=== PATIENT | female | born 1930 | race Caucasian/White ===

== ENCOUNTER → 2016-11-29 | Outpatient (CLI) | payer OTHER ==
[~2016-11-29] MED LIST: CALCIUM 500 +1 EAC5 PO; CELEBREX 200 M200 M1 PO; COLACE100 MG PO; GABAPENTIN100 MG PO; GLUMETZA500 PO; INDAPAMIDE2.5 MG PO; MAALOX MAXIMUM355 ML PO; MELATONIN3 MG PO; MIRALAX17 GM PO; NEXIUM 40 MG CA40 M1 PO; NORCO 5-325 TA1 EACH PO; PRILOSEC20 MG PO; QUINAPRIL 20 MG20 MG PO; SIMVASTATIN40 MG PO; SYNTHROID50 MCG PO; TYLENOL325 MG PO; XANAX 0.25 MG0.25 MG PO
== END ==
LOC: HYPER 14:13
DX: L30.9 Dermatitis, unspecified (principal); E11.69 Type 2 diabetes mellitus with other specified complication; K21.9 Gastro-esophageal reflux disease without esophagitis; R21 Rash and other nonspecific skin eruption; L30.4 Erythema intertrigo; I10 Essential (primary) hypertension; M81.0 Age-related osteoporosis without current pathological fracture; Z79.84 Long term (current) use of oral hypoglycemic drugs; Z85.828 Personal history of other malignant neoplasm of skin; Z72.89 Other problems related to lifestyle

== ENCOUNTER 2018-05-28 01:03 | Emergency (ER) | payer OTHER ==
[~2018-05-28] VITALS: Ht 154.9 cm; Wt 75.3 kg
--- NOTE | ~2018-05-28 | EKG ---
[place] [address] [facility] [place] [address] ELECTROCARDIOGRAM REPORT Name: ROBERT FRANKEL [id number] Admission: 05/28/18 Attend Phys: Discharge: 05/28/18 Date of : 34 Report #: [id number] THIS REPORT FOR: //name// 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 05/28/18 0845 014 1 Carlos Manuel Bolton MD, [facility] /EPI
[2018-05-28 01:38] LABS: ABSOLUTE NEUTROPHILS 4.5 thou/uL (1.4-8.2); BASOPHILS 0.8 % (0.0-2.0); HEMOGLOBIN 11.7 gm/dL (12.0-15.0); LYMPHOCYTES 30.1 % (24.0-44.0); MCH 29.8 pg (26.0-34.0); MCHC 33.3 g/dL (28.0-37.0); MCV 89.6 fL (80.0-100.0); MONOCYTES 6.8 % (1.0-8.0); PLATELET COUNT 197 thou/uL (150-400); POLYS 61.3 % (36.0-66.0); RBC 3.91 mil/uL (4.20-5.00); RDW 12.8 % (10.5-14.5); WBC 7.3 thou/uL (4.0-11.0)
[2018-05-28 01:45] LABS: CALCIUM 9.3 mg/dL (8.5-10.1); CREATININE 1.1 mg/dL (0.6-1.0); POTASSIUM 4.6 mmol/L (3.5-5.1)
[2018-05-28 02:41] LABS: URINE BILIRUBIN NEGATIVE (Negative); URINE BLOOD NEGATIVE (Negative); URINE CLARITY CLEAR; URINE COLOR YELLOW; URINE GLUCOSE-RANDOM* NEGATIVE (Negative); URINE KETONES NEGATIVE (Negative); URINE LEUKOCYTES 2+ (Negative); URINE NITRITE NEGATIVE (Negative); URINE PROTEIN (DIPSTICK) NEGATIVE (Negative); URINE SPECIFIC GRAVITY 1.015 (1.005-1.035); URINE UROBILINOGEN 0.2 E.U./dl (0.2-1.0)
[2018-05-28 03:00] LABS: BACTERIA 1-9 Few /HPF (None Seen); CASTS None Seen /LPF (None Seen); CRYSTALS None Seen /LPF (None Seen); MUCUS 0-3 Light strn/LPF (None Seen); SQUAMOUS None Seen /LPF (0-3); URINE RBC None Seen /HPF (0-2); URINE WBC 6-15 Few /HPF (0-5)
[2018-05-28] MEDS ORDERED: CEFUROXIME250 MG PO (03:50)
== END 2018-05-28 04:03 | disposition home or self-care (01) ==
LOC: ER 01:03
PROVIDERS: Emergency Medicine
DX: N39.0 Urinary tract infection, site not specified (principal); R41.82 Altered mental status, unspecified; M25.512 Pain in left shoulder; M19.90 Unspecified osteoarthritis, unspecified site; M79.7 Fibromyalgia; K21.9 Gastro-esophageal reflux disease without esophagitis; I10 Essential (primary) hypertension; M81.0 Age-related osteoporosis without current pathological fracture; E11.9 Type 2 diabetes mellitus without complications; F41.9 Anxiety disorder, unspecified; Z90.49 Acquired absence of other specified parts of digestive tract; Z96.652 Presence of left artificial knee joint; Z85.828 Personal history of other malignant neoplasm of skin; Z88.8 Allergy status to other drugs, medicaments and biological substances; Z88.2 Allergy status to sulfonamides

== ENCOUNTER 2020-11-24 12:33 | Inpatient (IN) | payer OTHER ==
[~2020-11-24] VITALS: Ht 162.6 cm; Wt 57.1 kg
[~2020-11-24 12:33] MED LIST changes: -BRILINTA90 MG PO; -CHLORPROMAZINE10 M2 PO; -KEFLEX500 M1 PO; -NORVASC 2.5 MG2.5 M1 PO; -PROTONIX40 M2 PO; -SENNA PLUS TAB1 EACH PO; -SERTRALINE HCL100 MG PO
[2020-11-24 12:47] VITALS: BP 131/65
[2020-11-24] MEDS ORDERED: CHLORPROMAZINE10 M2 PO (14:17)
[2020-11-24] MEDS ORDERED: KEFLEX500 M1 PO (14:18)
[2020-11-24] MEDS ORDERED: NORVASC 2.5 MG2.5 M1 PO (14:18)
[2020-11-24] MEDS ORDERED: BRILINTA90 MG PO (14:19)
[2020-11-24] MEDS ORDERED: SENNA PLUS TAB1 EACH PO (14:19)
[2020-11-24] MEDS ORDERED: PROTONIX40 M2 PO (14:20)
[2020-11-24] MEDS ORDERED: SERTRALINE HCL100 MG PO (14:20)
[2020-11-24 15:38] LABS: ABSOLUTE NEUTROPHILS 5.8 thou/uL (1.4-8.2); BASOPHILS 0.5 % (0.0-2.0); EOSINOPHILS 1.5 % (0.0-3.0); HEMOGLOBIN 11.5 gm/dL (12.0-15.0); LYMPHOCYTES 20.2 % (24.0-44.0); MCH 29.7 pg (26.0-34.0); MCV 92.6 fL (80.0-100.0); MONOCYTES 5.6 % (1.0-8.0); PLATELET COUNT 236 thou/uL (150-400); POLYS 72.2 % (36.0-66.0); RBC 3.89 mil/uL (4.20-5.00); RDW 13.8 % (10.5-14.5)
[2020-11-24 15:43] LABS: CALCIUM 9.5 mg/dL (8.5-10.1); CREATININE 1.1 mg/dL (0.6-1.0); POTASSIUM 3.9 mmol/L (3.5-5.1)
[2020-11-24 15:49] LABS: ALBUMIN 3.1 g/dL (3.4-5.0); MAGNESIUM 1.2 mg/dL (1.8-2.4); TOTAL BILIRUBIN 0.2 mg/dL (0.2-1.0); TOTAL PROTEIN 7.3 g/dL (6.4-8.2)
--- NOTE | 2020-11-24 17:21 | NUR ---
WHEN CHECKING ON PATIENT AFTER MEDICATION ADMINISTRATION, ARM ABOVE IV IS RED AND SLIGHTLY INFLAMMED. PT STATES ARM DOES NOT HURT. IV REMOVED, IV TEAM NOTIFIED
--- NOTE | 2020-11-24 17:24 | NUR ---
DR GRANDE AND PHARMACY CONSULTED D/T POSSIBLE INFILTRATION
[2020-11-24 18:25] VITALS: BP 131/65
[2020-11-24 18:32] VITALS: BP 131/65
--- NOTE | 2020-11-24 19:22 | NUR ---
CAREY CALLED FOR PICC LINE ORDER.
[2020-11-24 19:23] VITALS: BP 125/55
[2020-11-24 20:00] VITALS: BP 155/64
--- NOTE | 2020-11-24 21:07 | NUR ---
PT CAME UP FROM ER AT 1950 HRS. NO IV ACCESS. WAITING FOR PICC LINE PLACEMENT.REQUEST PLACED IN ER.
--- NOTE | 2020-11-24 23:47 | NUR ---
ADMISSION ASSESSMENT COMPLETED. PT [place] AND WITH SOME CONFUSION, MAKING IT SOMEWHAT DIFFICULT TO ANSWER QUESTIONS.PT HAS LEFT SIDED MILD CONTRACTURES WITH WEAKNESS.PT UNABLE TO SIGN CONSENTS.REPORTS PAIN AND TENDERNESS TO R GREAT TOE. SCDS IRRITATE HER MORE.AFEBRILE. STABLE ON ROOM AIR. GIVEN TRAMADOL FOR PAIN. NOTED TO SWALLOW MEDS OKAY. PT IS INCONTINENT OF BLADDER.A PIV PLACED IN LEFT WRIST-BLOOD SUGAR OF 120.PT FORGETS TO USE CALL LIGHT EVEN AFTER THE EDUCATION.FALL PREC IN PLACE.COVID TEST SENT TO LAB.WILL CONTINUE WITH POC TILL EOS.
[2020-11-25 07:33] VITALS: BP 135/69
--- NOTE | 2020-11-25 09:39 | NUR ---
ASSUMED CARE AT 0700. PT IS A&O X 2-3. PT IS VERY CONFUSED AND FORGETFUL. CALLED IV TEAM REGARDING PICC LINE. NEEDS CONSENT FORM TO SIGN FOR FALL RISK, AND PICC LINE CONSENT. RA. WHEELCHAIR BOUND DUE TO STROKE. WOUND ON RIGHT TOE: BLACKISH LIKE INGROWN NAIL. IV IS ON L. WRIST TO GIVE ANTIBIOTICS LAST NIGHT BUT NEEDS PICC LINE. ACHS. INCONTINENT. FALL PRECAUTION. CALL LIGHT WITHIN REACH.
--- NOTE | 2020-11-25 14:53 | NUR ---
Chart reviewed and case discussed with the care team. Spouse here at bedside but pt being preped to go to MRI. The pt was admitted via the [facility] wound clinc where she is being followed for a non healing Rt toe ulcer. Rule out osteo. Wound care and ID consulting. Pt is wheelchair bound due to a prior CVA and relies on spouse for history and care. The pt's spouse and dtr noted to be her dpoa for hc and family to bring in a copy. The pt's pcp is Dr. Parks. Will reattempt to visit with the pt's spouse to see if they have any caregiving support or HH prior to admission. Will follow.
--- NOTE | 2020-11-25 15:18 | NUR ---
VAT CONSULTED FPR PICC PLACEMENT. DISCUSSED BENEFITS AND RISK WITH PT AND , VERBALIZED UNDERSTANDING. PT'S LABS,MEDS,HX,ORDER AND CONSENT VERIFIED. VIRGILIO ROB WAS WIDELY PATENT WITH USG. 4FR SL POWER PICC TRIMMED TO 41CM INSERTED TO 1CM EXTERNAL. PT TOLERATED WELL. STAT CXR ORDERED
--- NOTE | 2020-11-25 15:43 | NUR ---
CXR SHOWS PICC CURLED. POWER FLUSHED AND REPOSITIONED. 2ND STAT CXR ORDERED
[2020-11-25 16:03] VITALS: BP 144/50
--- NOTE | 2020-11-25 16:57 | NUR ---
2ND CXR CONFIRMED PICC IN CAJ. PICC RELEASED FOR IMMEDIATE USE PER PROTOCOL TO MEY WHITLEY
--- NOTE | 2020-11-25 20:13 | NUR ---
ASSUMED PT CARE AT AROUND 1915 HRS. PT OBSERVED YELLING AND SCREAMING. INSISITING SHE WANTS TO GET OUT OF BED. PT IS VERY CONFUSED.PT WAS ABLE TO TALK AND CALMED DOWN. SHE TOOK SUKHWINDER WITH SOME JELLO.
[2020-11-26] VITALS (11 sets, daily range): BP systolic 115–141; BP diastolic 45–84
[2020-11-26 04:59] LABS: HEMATOCRIT 30.3 % (37.0-47.0); HEMOGLOBIN 9.8 gm/dL (12.0-15.0); MCH 29.9 pg (26.0-34.0); MCHC 32.5 g/dL (28.0-37.0); MCV 91.9 fL (80.0-100.0); RBC 3.3 mil/uL (4.20-5.00); RDW 13.9 % (10.5-14.5); WBC 6.9 thou/uL (4.0-11.0)
[2020-11-26 05:17] LABS: CALCIUM 9.4 mg/dL (8.5-10.1); MAGNESIUM 1.1 mg/dL (1.8-2.4)
[2020-11-26 05:22] LABS: POTASSIUM 4.6 mmol/L (3.5-5.1)
[2020-11-26 06:31] LABS: APTT 25.9 Seconds (24.5-32.8); PROTIME 10.3 Seconds (9.3-11.4)
--- NOTE | 2020-11-26 13:09 | NUR ---
ON-GOING ASSESSMENT: CM REVIEWED CHART AND SPOKE WITH ATTENDING AND BEDSIDE RN. PT REMAINS ON IV ANBX. AWAITING FURTHER RECS FROM PODIATRY. CM WILL CONTINUE TO FOLLOW TO ASSIST NEEDED.
--- NOTE | 2020-11-26 14:40 | NUR ---
Assume care of pt at 0700. Pt alert but confused. Pt will have aortogram today. Family notified. RA. Pt impulsive at times when family is not at bedside. IV antibiotics infusing. Fall precautions in place. Will continue to monitor.
--- NOTE | 2020-11-26 19:38 | NUR ---
PATIENT TRANSFER FROM , IN FROM LOGGING EQUIPMENT OPERATOR. PATIENT CONFUSED, VSS, NO APPARENT PAIN. DR JJ APPROVED LEFT LEG SOFT RESTRAINT TO KEEP PATIENT FROM CROSSING LEGS. PATIENT GET UP AT 2100. ATTEMPTED TO CALL AT 1935 ABOUT RESTRAINT AND NO ANSWER. PATIENT HAS WOUND ON RIGHT GREAT TOE AND REDNESS ON BACKSIDE, UNABLE TO GET PHOTO. PATIENT HAS RIGHT UPPER ARM PICC. PATIENT CAME TO FLOOR APPROX 1830. PATIENT ON ROOM AIR, SATS AT 95%. PATIENT ON TELE MONITOR, SINUS RHYTHM. RESTRAINT PAPERWORK COMPLETED. NO SIGNS OF DISTRESS OBSERVED. WILL CONTINUE TO MONITOR.
--- NOTE | 2020-11-27 04:08 | NUR ---
PT IS ALERT TO SLEF WITH CONFUSION. LUNGS ARE CLEAR ON ROOM AIR. EXTERNAL CATH ON PT. UP AND VOIDS TOO IN THE BATHROOM. LEFT GROIN SITE CLEAN DRY AND INTACT. TAKES TYELENOL FOR PAIN CONTROL AND WORKS CAUSE AFTER MEDS PT IS SLEEPING CALL LIGHT WITHIN REACH IF NEEDED FOR ASSISTANCE.
[2020-11-27 04:11] VITALS: BP 99/66
[2020-11-27 06:12] LABS: CALCIUM 9.4 mg/dL (8.5-10.1); CREATININE 0.8 mg/dL (0.6-1.0); MAGNESIUM 1.5 mg/dL (1.8-2.4); POTASSIUM 4.5 mmol/L (3.5-5.1)
[2020-11-27 07:10] VITALS: BP 115/52
--- NOTE | 2020-11-27 08:00 | HC ---
[facility] [place] [place] [address] CONSULTATION Name: ROBERT FRANKEL Room #: 203-P ADM IN M.R.#: [id number] Admission: 11/24/20 Attend Phys: Maurice Wick MD Discharge: Date of : 32 Report #: [id number] THIS REPORT FOR: cc: Silvano Parks MD, Rene P. MD Althoff, Jeffrey R. MD ~ DATE OF SERVICE: 11/25/2020 CHIEF COMPLAINT: Great toe ulceration. HISTORY OF PRESENT ILLNESS: This is an 89-year-old female patient who was seen in the Wound Care Clinic by Dr. Wagner yesterday. She was noted to have ulceration of her right great toe with some necrosis and infection and she was admitted for further evaluation and treatment. The patient states she is doing relatively well, but does complain of pain in the great toe. PAST MEDICAL HISTORY: Positive for history of cognitive impairment, arthritis, fibromyalgia, GERD, bilateral cataracts, hypertension, degenerative disk disease, previous left knee replacement, type 2 diabetes mellitus, previous cholecystectomy, anxiety and history of hyponatremia. SOCIAL HISTORY: The patient admits to occasional alcohol use. She has never been a smoker. No recreational drug use. MEDICATIONS: Include Xanax, Prilosec, Accupril, Tylenol, Glumetza, Zocor, Synthroid, Os-Urban, Colace, melatonin, MiraLax, chlorpromazine, Norvasc, Keflex, Brilinta, Protonix, sertraline. ALLERGIES: CIMETIDINE, HYDROCODONE, SULFA AND NONSTEROIDAL ANTI-INFLAMMATORY AGENTS. REVIEW OF SYSTEMS: CONSTITUTIONAL: The patient denies fever, chills or weight loss. NEUROLOGIC: The patient denies focal weakness, numbness or tingling. EYES: The patient denies visual changes, redness, or drainage. ENT: The patient denies earache, nasal drainage or sore throat. CARDIOVASCULAR: The patient denies chest pain, palpitations or diaphoresis. PULMONARY: The patient denies cough or shortness of breath. GASTROINTESTINAL: The patient denies nausea, vomiting or abdominal pain. ORTHOPEDIC: The patient complains of pain in her right great toe. Other systems in a 14-point review of systems are negative. PHYSICAL EXAMINATION: VITAL SIGNS: At this time include temperature 36.7, pulse 61, respiratory rate 16, blood pressure 144/50. [address] [address] CONSULTATION Name: ROBERT FRANKEL Room #: 203-P [facility] IN ..#: [id number] Admission: 11/24/20 Attend Phys: Maurice Wick MD Discharge: Date of : 32 Report #: [id number] GENERAL: This is a chronically ill-appearing female patient who appears to be in no distress. HEENT: Head normocephalic. Nose and throat clear. NECK: Supple. ABDOMEN: Soft. Bowel sounds present. EXTREMITIES: Lower extremities demonstrate distal pulses are difficult to palpate, although the toes are pink, warm and dry. She has ulceration to the nail bed of the right great toe with some eschar involving the distal nail bed and tip of the toe. The nail appears to be somewhat ingrown. There is some mild erythema and moderate tenderness. NEUROLOGIC: The patient is alert, does move all 4 extremities. LABORATORY DATA: Include white blood cell count 8000 with hemoglobin of 11.5. Sodium 140, potassium 4.6, chloride 108, CO2 of 26, BUN 24, creatinine 1.0, glucose 118. C-reactive protein is less than 2. An MRI was performed, which demonstrated possible findings of osteomyelitis of the distal tuft. CLINICAL IMPRESSION: 1. Ulceration of the distal portion of the right great toe with a partially ingrown toenail. 2. Hypertension and type 2 diabetes mellitus. 3. History of ethanol abuse. 4. Generalized anxiety disorder. RECOMMENDATIONS: At this point in time, I would recommend topical Betadine to the eschar. We will review arterial Doppler studies with Dr. Alcala. I have asked Podiatry to see him, Dr. Walker, for possible surgical intervention or debridement of the nail bed or toenail itself. I appreciate being asked to see the patient in consultation. <ELECTRONICALLY SIGNED> By: Deion Del Cid MD 11/27/20 0800 1704 1900 Deion Del Cid MD /nt
[2020-11-27 08:48] LABS: HEMOGLOBIN 10.4 gm/dL (12.0-15.0); MCH 30.3 pg (26.0-34.0); MCHC 32.5 g/dL (28.0-37.0); MCV 93.4 fL (80.0-100.0); RBC 3.43 mil/uL (4.20-5.00); RDW 14.2 % (10.5-14.5); WBC 8.9 thou/uL (4.0-11.0)
[2020-11-27] MEDS ORDERED: CLOPIDOGREL75 MG PO (08:52)
[2020-11-27] MEDS ORDERED: ASPIR 8181 MG PO (08:52)
[2020-11-27 11:15] VITALS: BP 132/51
--- NOTE | 2020-11-27 12:16 | NUR ---
Pt now on CCU. ID consulted due to wound infection. Visited with pt and spouse at bedside. They note that their disabled son also lives with them. Pt's spouse is primary cg for the pt but has had hh recently with [facility] and private duty per [facility] [employer] as well as a pall run lead visits monthly with [facility]. Some of the private duty hours are covered by [employer] benefits as well. DC principal planner to fax updated to [facility] to see if they will accept the pt back on service for RN and therapy at md. They prefer to stay with [facility] if possible. The pt has all needed dme in place at home including a hospital bed w/trapeze, w/c, rwalker, shower chair. The home is all on one level. Pt is an assist of one for transfers to the w/c. Pt's spouse is very attentive. He notes their dtr Saima is very involved with their care at home and can be contacted for dc planning efforts as well. No dc anticipated this weekend. Will reassess Monday and anticipate dc to home with hh.
--- NOTE | 2020-11-27 13:28 | NUR ---
FAXED REFERRAL TO [facility] SPOKE WITH INTAKE AND THEY CANNOT ACCEPT THEY ARE ON [facility] PT'S HOME LOCATION.
[2020-11-27 15:42] VITALS: BP 130/46
--- NOTE | 2020-11-27 18:28 | NUR ---
PATIENT IS NOT PROGRESSING TOWARDS OUTCOME GOALS EVIDENT BY SHE IS AFEBRILE. AT BEDSIDE AND ASSISTING WITH MEALS. LEFT GROIN SITE IS SOFT AND FEET ARE WARM TO TOUCH. WOUND CARE GIVEN. WILL CONTINUE TO MONITOR
[2020-11-27 19:09] VITALS: BP 149/65
[2020-11-28 04:00] VITALS: BP 135/64
--- NOTE | 2020-11-28 04:47 | NUR ---
SLEPT MOST OF SHIFT. WANTS TO HAVE SOMEONE AT BEDSIDE ALL OF THE TIME. REASSURED SHE WOULD BE WATCHED CLOSELY. WORKING ON GOALS AND PLAN OF CARE FOR NOC. PROGRESSING SLOWLY TOWARDS DISCHARGE GOALS. NO COMPLAINTS OF PAIN UNLESS TOUCHING RIGHT FOOT. TURNS SELF IN BED. FEMALE CATH REMAINS IN PLACE. CONTINUE TO ASSES CLOSELY.
[2020-11-28 05:43] LABS: HEMATOCRIT 28.4 % (37.0-47.0); HEMOGLOBIN 9.4 gm/dL (12.0-15.0); MCH 30.1 pg (26.0-34.0); MCHC 32.9 g/dL (28.0-37.0); MCV 91.4 fL (80.0-100.0); RBC 3.11 mil/uL (4.20-5.00); RDW 13.8 % (10.5-14.5); WBC 8.5 thou/uL (4.0-11.0)
[2020-11-28 05:59] LABS: CALCIUM 9.4 mg/dL (8.5-10.1); CREATININE 0.8 mg/dL (0.6-1.0); POTASSIUM 3.8 mmol/L (3.5-5.1)
[2020-11-28 07:40] VITALS: BP 127/70
[2020-11-28 11:28] VITALS: BP 134/74
--- NOTE | 2020-11-28 14:23 | NUR ---
PT ONLY ORIENTED TO SELF, ASK, "WHERE AM I?" DID NOT WANT HER LOWER SIDE RAILS DOWN BECAUSE SHE IS "SCARED I'LL FALL OUT OF BED." AT SIDE FOR LAST FEW HOURS. PT SLEEPING COMFORTABLY. UPDATED HIM ON POC,
--- NOTE | 2020-11-28 15:02 | HC ---
[facility] [place] [place] [address] CONSULTATION Name: ROBERT FRANKEL Room #: 203-P ADM IN M.R.#: [id number] Admission: 11/24/20 Attend Phys: Maurice Wick MD Discharge: Date of : 32 Report #: [id number] THIS REPORT FOR: cc: Silvano Parks MD, Rene P. MD Geha, Daniel J. MD ~ DATE OF SERVICE: 11/27/2020 INFECTIOUS DISEASE CONSULTATION REASON FOR CONSULTATION: I was asked to evaluate concerning right first toe wound and osteomyelitis. HISTORY OF PRESENT ILLNESS: The patient was an 89-year-old admitted due to nonhealing and painful right first toe wound. The patient has underlying history of diabetes, stroke and peripheral vascular disease. She was seen in the Wound Care Clinic and admitted for further intervention. She denied any fever, chills or sweats. She was found to have significant vascular obstruction and underwent angiography along with stenting of the right SFA, popliteal and tibioperoneal trunk. MRI scan showed reactive bone to the distal aspect of the right first distal phalanx. There was no cortical destruction. She reports no specific trauma. She does have an ingrown nail with known onychomycosis. She was treated with vancomycin to date. REVIEW OF SYSTEMS: A 14-point review of system was negative other than what has been described above. ALLERGIES: CIMETIDINE, HYDROCODONE, NONSTEROIDAL ANTI-INFLAMMATORIES, BACTRIM. MEDICATIONS: As noted on her MAR including vancomycin. She was previously on cephalexin. PAST MEDICAL HISTORY: Stroke with left hemiparesis, peripheral vascular disease, diabetes, hypertension, hypothyroidism, hyperlipidemia, osteoarthritis, hard of hearing, mild dementia, left total knee arthroplasty, bilateral cataract extraction, cholecystectomy, anxiety, fibromyalgia. FAMILY HISTORY: Denies tuberculosis. SOCIAL HISTORY: Nonsmoker, occasional alcohol use. PHYSICAL EXAMINATION: VITAL SIGNS: Afebrile and hemodynamically stable. GENERAL: She is alert and cooperative. She was in no distress. She was hard of hearing. [facility] [address] [place] [address] CONSULTATION Name: ROBERT FRANKEL Dar Room #: 203-[facility] IN M.R.#: [id number] Admission: 11/24/20 Attend Phys: Maurice Wick MD Discharge: Date of : 32 Report #: [id number] SKIN: With ulceration and eschar involving the medial distal aspect of her right first toe. There was an ingrown nail. She had mild surrounding erythema. There is no erythema extending to the proximal toe went to the foot. Trace edema. No palpable adenopathy. EYES: Without scleral icterus. MOUTH: Without mucositis. NECK: Supple. LUNGS: Clear. HEART: Regular, without murmur, gallop or rub. ABDOMEN: Soft and nontender with no hepatosplenomegaly or mass. EXTREMITIES: With 1+ palpable pulses, dorsalis pedis and posterior tibia on the right foot. Sensation to touch in the distal toes was diminished. The patient had weakness on the left side compared to the right. PSYCHIATRIC: Mood without anxiety or depression. LABORATORY STUDIES: Reviewed. Microbiology reviewed. Chest x-ray, MRI scan, angiogram reviewed. IMPRESSION: Right first toe, ischemic ulcer with secondary infection. Reactive bone marrow changes on MRI scan involving the distal phalanx of the first toe with no cortical destruction evident. Early osteomyelitis would also be possible. Peripheral vascular disease, status post multiple stent placements, diabetes, peripheral neuropathy, hypertension, anxiety. RECOMMENDATIONS: We will plan on continuing IV antibiotic therapy for the next several weeks and assess her response. We will need to follow imaging studies. Continue with local wound care. The patient may ultimately require further surgical intervention. Podiatry has evaluated and we will follow. <ELECTRONICALLY SIGNED> By: Sergio Dang MD 11/28/20 1502 18 35 Sergio Dang MD /nt
[2020-11-28 15:09] VITALS: BP 143/64
[2020-11-28 19:44] VITALS: BP 135/58
[2020-11-29 03:47] VITALS: BP 136/671; BP 136/71
--- NOTE | 2020-11-29 05:17 | NUR ---
SLEPT MOST OF SHIFT. COOPERATIVE WITH ACTIVITY. TURNS SELF AT TIMES AND ASSIST NEEDED. REMAINS ORIENTED TO SELF. DOES NOT REMEMBER WHY SHE IS HERE AND WHERE. DENIES COMPLAINTS OF PAIN EXCEPT WHEN RIGHT FOOT IS TOUCHED. CONTINUE TO ASSES CLOSELY. WORKING ON GOALS AND PLAN OF CARE FOR NOC. PROGRESSING SLOWLY TOWARDS REHAB OR HOME WITH HOME HEALTH.
[2020-11-29 07:28] VITALS: BP 142/64
[2020-11-29 11:25] VITALS: BP 136/54
[2020-11-29 15:33] VITALS: BP 132/62
--- NOTE | 2020-11-29 17:57 | NUR ---
EARLIER PATIENT WAS CONFUSED. SHE CALMED DOWN AFTER VISITED. NO C/O OF PAIN AT THIS TIME. WILL CONT TO MONITOR AND ASSIST NEEDED.
[2020-11-29 20:11] VITALS: BP 137/48
--- NOTE | 2020-11-30 02:07 | NUR ---
PT IS ALERT TO SLEF AND CONFUSION. LUNGS CLEAR ON ROOM AIR. ABDOMEN IS SOFT AND ROUND. DENIES ANY PAIN ISSUES AT THIS TIME. HAS A RIGHT UPPER ARM SINGLE LUMEN CATH FOR ANTIBIOTICS. MED SURG STATUS. CALL LIGHT WITHIN REACH IF NEEDED FOR ASSISTANCE. NO ISSUES OR CONCERNS NOTED AT THIS TIME. BETADINE TO RIGHT GREAT TOE
[2020-11-30 04:25] VITALS: BP 148/80
[2020-11-30 04:48] LABS: HEMATOCRIT 30.8 % (37.0-47.0); HEMOGLOBIN 9.7 gm/dL (12.0-15.0); MCH 29.1 pg (26.0-34.0); MCHC 31.6 g/dL (28.0-37.0); MCV 91.9 fL (80.0-100.0); RBC 3.35 mil/uL (4.20-5.00); RDW 13.9 % (10.5-14.5); WBC 9.4 thou/uL (4.0-11.0)
--- NOTE | 2020-11-30 05:04 | NUR ---
TRANSFER TO ROOM 462 WITH ALL BELONGING AND REPORT CALLED. PER NURSING.
[2020-11-30 05:12] VITALS: BP 129/48
[2020-11-30 05:27] LABS: CALCIUM 9.7 mg/dL (8.5-10.1); CREATININE 0.9 mg/dL (0.6-1.0); POTASSIUM 3.8 mmol/L (3.5-5.1)
--- NOTE | 2020-11-30 05:42 | NUR ---
PT TRANSFERED TO THE UNIT FROM AT 0450 ON MED/SURG.PT CAME WITH C/O WOUND ON RT GREAT TOE OPENED TO AIR WITH BETADINE.PT APPEARED TO BE IN NO ACUTE PAIN.PT IS ACCUCHECK ACHS.PT IS INCONTINENT TO B/B.PT IS ALERT TO SELF AND CONFUSE.IV ON VIRGILIO PICC LINE.WILL CONTINUE TO MONITOR POC
[2020-11-30 13:47] VITALS: BP 143/67
--- NOTE | 2020-11-30 15:15 | NUR ---
ASSUMED CARE OF PATIENT AFTER REPORT. ASSESSMENT CHARTED. MEDICATIONS ADMINISTERED PER EMAR. VSS. PATIENT IS A&OX4 AND MAKES NEEDS KNOWN; REPORTED TO HAVE FORGETFULNESS BUT NONE NOTED THIS SHIFT. PATIENT RECIEVED ABX X2 AND WILL BE SENT BACK HOME W HOME HEALTH THIS DAY. PATIENT HAS A SINGLE LUMEN PICC WHERE SHE WILL HAVE HER ABX ADMINISTERED. SPOUSE AT BEDSIDE. DISCHARGE PAPERWORK COMPLETED; PATIENT SPOUSE EDUCATED ON CARE PLAN AND POST DISCHARGE INSTRUCTIONS. PATIENT DENIED PAIN THIS SHIFT, INCONTINENT AND CHECKED/CHANGED FREQUENTLY. PATIENT VOICED NO OTHER NEEDS. WILL CONTINUE TO MONITOR AND AWAIT FINALIZE DISCHARGE
[2020-11-30 16:08] VITALS: BP 143/67
--- NOTE | 2020-11-30 16:26 | NUR ---
CARE TEAM INDICATED THAT PT IS MEDICALLY STABLE TO DC HOME THIS DAY WITH HH AND IV INFUSION. CM MET WITH PT'S SPOUSE AT BEDSIDE AND HE ASKED THAT REFERRAL BE SENT TO [facility]. HE INDICATED NO PREFERENCE FOR HOME INFUSION SERVICES. REFERRAL SENT TO [facility]. COST IS 36.65 PER DAY. CM NOTIFIED SPOUSE AND HE INDICATED THAT WAS FINE. CM CALLED AND SPOKE WITH PT'S TWO DTRS WELL. MARIAELENA WANTS TO BE PRESENT FOR BEDSIDE TEACH WITH HER DAD. CM REQUESTED AND RECEIVED PERMISSION TO MARIAELENA JOSTIN TO COME TO UNIT. BEDSIDE TEACHTO BE DONE BY RO WITH [facility]. [facility] CAN ACCEPT PT FOR HH AND IS SCHEDULED TO DO SOC TOMORROW AM. ORDERS SENT TO [facility] AND [facility]. PT'S SON TO TAKE HER WC AND BELONGINGS HOME. [facility] SET UP FOR [phone]. NO OTHER CM INTERVENTION INDICATED. CASE CLOSED.
--- NOTE | 2020-11-30 16:50 | NUR ---
FAXED DC ORDERS/SUMMARY TO [facility] HH SPOKE WITH TAIWO IN INTAKE SHE RECEIVED ORDERS AND WILL ARRANGE VISITS WITH PT. PT WILL HAVE IV ABX INFUSION THROUGH [facility] FAXED DC ORDERS/SUMMARY SPOKE WITH SYL IN INTAKE SHE RECEIVED DC ORDERS.
--- NOTE | 2020-12-02 13:03 | HC ---
[facility] [place] [address] CONSULTATION Name: ROBERT FRANKEL Room #: 462-P [facility] IN M.R.#: [id number] Admission: 11/24/20 Attend Phys: Maurice Wick MD Discharge: 11/30/20 Date of : 32 Report #: [id number] THIS REPORT FOR: cc: Silvano Parks MD, Rene P. MD Hanon, Daniel R. DPM ~ ADMISSION DIAGNOSIS: Nonhealing ulceration, right great toe. HISTORY OF PRESENT ILLNESS: An 89-year-old female who was admitted through the Emergency Department from the Wound Care Clinic with nonhealing ulceration to the right great toe with cellulitis. The patient is a poor historian. She appears to have some degree of cognitive impairment. She denies recent fevers, chills, nausea or night sweats. She has mild pain to the right great toe, particularly with direct palpation. PAST MEDICAL HISTORY: Significant for type 2 diabetes mellitus. She is currently on parenteral vancomycin. X-rays were negative for osteolysis to the right great toe. MRI shows increased T1 appetite read as osteomyelitis. Noninvasive arterial Doppler ultrasound order is pending. Blood cultures negative x 2. LABORATORY DATA: WBC 6.9, RBC 3.30, hemoglobin 9.8, hematocrit 30.3, platelets 210. BUN 24, creatinine 1.0, glucose 118. PHYSICAL EXAMINATION: Temperature 97.7, pulse 59, respirations 12, blood pressure 115/57. There is a firm black eschar to the right distal hallux that is tender to the touch low-grade inflammation to the surrounding skin consistent with resolving cellulitis. There is no drainage to the area. The toenail is thickened, dystrophic consistent with onychomycosis without paronychia. I can faintly palpate the right dorsalis pedis and posterior tibial arteries. Her right foot is warm with no pallor or cyanosis, +2 nonpitting edema to both legs. IMPRESSION: Ulceration with dry eschar to the right hallux with localized cellulitis, type 2 diabetes mellitus. PLAN: I do not recommend surgical amputation at this point. I feel the increased T1 signals likely reactive bone marrow edema and not osteomyelitis, although bone infection cannot be completely ruled out. There is no evidence of osteolysis on the foot radiographs. I recommend leaving the eschar intact at this point, although it may be debrided in the future if she becomes loose or unstable. Continue antibiotics per medicine. <ELECTRONICALLY SIGNED> By: Sergio Walker DPM 12/02/20 1303 [id number] 0822 Sergio Walker DPM /nt
== END 2020-11-30 18:10 | disposition home health service (06) | DRG 270 ==
LOC: ER 12:33 → 4S 17:07 → 2N 17:07 → EROBS 17:07 → 4S 19:42 → 2N 11-26 17:17 → 4W 11-30 05:05
PROVIDERS: Emergency Medicine; Hospitalist; Internal Medicine; Nurse Practitioner; ADMIT Hospitalist; ATTEND Hospitalist
PROC: 02HV33Z Insertion of Infusion Device into Superior Vena Cava, Percutaneous Approach (ICD-10-PCS; principal; 2020-11-25)
PROC: B548ZZA Ultrasonography of Superior Vena Cava, Guidance (ICD-10-PCS; principal; 2020-11-25)
PROC: B41D1ZZ Fluoroscopy of Aorta and Bilateral Lower Extremity Arteries using Low Osmolar Contrast (ICD-10-PCS; 2020-11-26)
PROC: 04CK3ZZ Extirpation of Matter from Right Femoral Artery, Percutaneous Approach (ICD-10-PCS; 2020-11-26)
PROC: 047A3DZ Dilation of Left Renal Artery with Intraluminal Device, Percutaneous Approach (ICD-10-PCS; 2020-11-26)
PROC: 04CM3ZZ Extirpation of Matter from Right Popliteal Artery, Percutaneous Approach (ICD-10-PCS; 2020-11-26)
PROC: 047M34Z Dilation of Right Popliteal Artery with Drug-eluting Intraluminal Device, Percutaneous Approach (ICD-10-PCS; 2020-11-26)
PROC: B4181ZZ Fluoroscopy of Bilateral Renal Arteries using Low Osmolar Contrast (ICD-10-PCS; 2020-11-26)
PROC: 047K3DZ Dilation of Right Femoral Artery with Intraluminal Device, Percutaneous Approach (ICD-10-PCS; 2020-11-26)
PROC: 047M3EZ Dilation of Right Popliteal Artery with Two Intraluminal Devices, Percutaneous Approach (ICD-10-PCS; 2020-11-26)
DX: E11.52 Type 2 diabetes mellitus with diabetic peripheral angiopathy with gangrene (principal); N17.0 Acute kidney failure with tubular necrosis; I69.354 Hemiplegia and hemiparesis following cerebral infarction affecting left non-dominant side; I96 Gangrene, not elsewhere classified; M86.272 Subacute osteomyelitis, left ankle and foot; E44.1 Mild protein-calorie malnutrition; F10.10 Alcohol abuse, uncomplicated; Z20.822 Contact with and (suspected) exposure to COVID-19; I70.201 Unspecified atherosclerosis of native arteries of extremities, right leg; I70.202 Unspecified atherosclerosis of native arteries of extremities, left leg; M79.7 Fibromyalgia; M19.90 Unspecified osteoarthritis, unspecified site; K21.9 Gastro-esophageal reflux disease without esophagitis; M81.0 Age-related osteoporosis without current pathological fracture; I10 Essential (primary) hypertension; Z96.1 Presence of intraocular lens; Z96.652 Presence of left artificial knee joint; E11.69 Type 2 diabetes mellitus with other specified complication; E11.621 Type 2 diabetes mellitus with foot ulcer; L97.519 Non-pressure chronic ulcer of other part of right foot with unspecified severity; F41.1 Generalized anxiety disorder; R53.81 Other malaise; L03.031 Cellulitis of right toe; L60.0 Ingrowing nail; E03.9 Hypothyroidism, unspecified; E78.5 Hyperlipidemia, unspecified; F03.90 Unspecified dementia, unspecified severity, without behavioral disturbance, psychotic disturbance, mood disturbance, and anxiety; Y90.9 Presence of alcohol in blood, level not specified; E83.42 Hypomagnesemia; G47.00 Insomnia, unspecified; M62.84 Sarcopenia; E11.42 Type 2 diabetes mellitus with diabetic polyneuropathy; Z98.41 Cataract extraction status, right eye; Z98.42 Cataract extraction status, left eye; Z79.899 Other long term (current) drug therapy; Z79.84 Long term (current) use of oral hypoglycemic drugs; Z88.8 Allergy status to other drugs, medicaments and biological substances; Z90.49 Acquired absence of other specified parts of digestive tract; Z88.2 Allergy status to sulfonamides; Z71.41 Alcohol abuse counseling and surveillance of alcoholic; Z68.21 Body mass index [BMI] 21.0-21.9, adult; Z99.3 Dependence on wheelchair; Y84.8 Other medical procedures as the cause of abnormal reaction of the patient, or of later complication, without mention of misadventure at the time of the procedure; Y92.230 Patient room in hospital as the place of occurrence of the external cause
CPT/HCPCS: 10081; 10195; 27000

== ENCOUNTER → 2020-11-24 | Outpatient (CLI) | payer OTHER ==
[~2020-11-24] MED LIST changes: +BRILINTA90 MG PO; +CEFUROXIME250 MG PO; +CHLORPROMAZINE10 M2 PO; +KEFLEX500 M1 PO; +NORVASC 2.5 MG2.5 M1 PO; +PROTONIX40 M2 PO; +SENNA PLUS TAB1 EACH PO; +SERTRALINE HCL100 MG PO
== END ==
LOC: HYPER 07:46
PROVIDERS: ATTEND Specialist
DX: L03.115 Cellulitis of right lower limb (principal); E11.621 Type 2 diabetes mellitus with foot ulcer; L97.511 Non-pressure chronic ulcer of other part of right foot limited to breakdown of skin; L03.031 Cellulitis of right toe; L60.0 Ingrowing nail; R60.9 Edema, unspecified; I69.90 Unspecified sequelae of unspecified cerebrovascular disease; I10 Essential (primary) hypertension; K21.9 Gastro-esophageal reflux disease without esophagitis; M81.0 Age-related osteoporosis without current pathological fracture; M19.90 Unspecified osteoarthritis, unspecified site; F41.9 Anxiety disorder, unspecified; Z85.828 Personal history of other malignant neoplasm of skin; Z79.84 Long term (current) use of oral hypoglycemic drugs; Z96.642 Presence of left artificial hip joint; Z98.49 Cataract extraction status, unspecified eye

== ENCOUNTER 2021-04-03 15:40 | Emergency (ER) | payer OTHER ==
[~2021-04-03] VITALS: Ht 162.6 cm; Wt 59.0 kg
[~2021-04-03 15:40] MED LIST changes: +ASPIR 8181 MG PO; +BRILINTA90 MG PO; +CHLORPROMAZINE10 M2 PO; +CLOPIDOGREL75 MG PO; +KEFLEX500 M1 PO; +NORVASC 2.5 MG2.5 M1 PO; +PROTONIX40 M2 PO; +SENNA PLUS TAB1 EACH PO; +SERTRALINE HCL100 MG PO
[2021-04-03 20:52] VITALS: BP 164/54
== END 2021-04-03 20:58 | disposition home or self-care (01) ==
LOC: ER 15:40
DX: I73.89 Other specified peripheral vascular diseases (principal); M79.675 Pain in left toe(s); M19.90 Unspecified osteoarthritis, unspecified site; M79.7 Fibromyalgia; K21.9 Gastro-esophageal reflux disease without esophagitis; E11.9 Type 2 diabetes mellitus without complications; Z88.5 Allergy status to narcotic agent; Z88.1 Allergy status to other antibiotic agents; Z88.6 Allergy status to analgesic agent; Z79.899 Other long term (current) drug therapy; Z86.73 Personal history of transient ischemic attack (TIA), and cerebral infarction without residual deficits; Z96.642 Presence of left artificial hip joint

== ENCOUNTER → 2021-04-19 | Outpatient (CLI) | payer OTHER | LOC: HYPER 07:56 | PROVIDERS: ATTEND Emergency Medicine Emergency Medical Services | DX: E11.621 Type 2 diabetes mellitus with foot ulcer (principal); L97.522 Non-pressure chronic ulcer of other part of left foot with fat layer exposed; L97.511 Non-pressure chronic ulcer of other part of right foot limited to breakdown of skin; L03.115 Cellulitis of right lower limb; L03.031 Cellulitis of right toe; L60.0 Ingrowing nail; R60.9 Edema, unspecified; E11.51 Type 2 diabetes mellitus with diabetic peripheral angiopathy without gangrene; I69.90 Unspecified sequelae of unspecified cerebrovascular disease; I10 Essential (primary) hypertension; E66.9 Obesity, unspecified; R26.2 Difficulty in walking, not elsewhere classified; K21.9 Gastro-esophageal reflux disease without esophagitis; M81.0 Age-related osteoporosis without current pathological fracture; M19.90 Unspecified osteoarthritis, unspecified site; F41.9 Anxiety disorder, unspecified; Z85.828 Personal history of other malignant neoplasm of skin; Z79.84 Long term (current) use of oral hypoglycemic drugs; Z96.652 Presence of left artificial knee joint; Z98.49 Cataract extraction status, unspecified eye; Z68.24 Body mass index [BMI] 24.0-24.9, adult ==

== ENCOUNTER → 2021-05-05 | Outpatient (CLI) | payer OTHER | LOC: HYPER 08:39 | PROVIDERS: ATTEND Emergency Medicine | DX: E11.621 Type 2 diabetes mellitus with foot ulcer (principal); L97.522 Non-pressure chronic ulcer of other part of left foot with fat layer exposed; L03.115 Cellulitis of right lower limb; L03.031 Cellulitis of right toe; L60.0 Ingrowing nail; R60.9 Edema, unspecified; E11.51 Type 2 diabetes mellitus with diabetic peripheral angiopathy without gangrene; I69.90 Unspecified sequelae of unspecified cerebrovascular disease; I10 Essential (primary) hypertension; E66.9 Obesity, unspecified; R26.2 Difficulty in walking, not elsewhere classified; K21.9 Gastro-esophageal reflux disease without esophagitis; M81.0 Age-related osteoporosis without current pathological fracture; M19.90 Unspecified osteoarthritis, unspecified site; F41.9 Anxiety disorder, unspecified; Z85.828 Personal history of other malignant neoplasm of skin; Z79.84 Long term (current) use of oral hypoglycemic drugs; Z96.652 Presence of left artificial knee joint; Z98.49 Cataract extraction status, unspecified eye; Z68.24 Body mass index [BMI] 24.0-24.9, adult ==

== ENCOUNTER 2021-09-08 12:44 | Emergency (ER) | payer OTHER ==
[~2021-09-08] VITALS: Ht 162.6 cm; Wt 65.8 kg
[2021-09-08 17:25] LABS: ABSOLUTE NEUTROPHILS 5.9 thou/uL (1.4-8.2); BASOPHILS 0.6 % (0.0-2.0); EOSINOPHILS 2.6 % (0.0-3.0); HEMATOCRIT 36.5 % (37.0-47.0); HEMOGLOBIN 11.7 gm/dL (12.0-15.0); LYMPHOCYTES 18.9 % (24.0-44.0); MCH 29.4 pg (26.0-34.0); MCHC 32.1 g/dL (28.0-37.0); MCV 91.6 fL (80.0-100.0); MONOCYTES 7.4 % (1.0-8.0); PLATELET COUNT 281 thou/uL (150-400); POLYS 70.5 % (36.0-66.0); RBC 3.99 mil/uL (4.20-5.00); RDW 13.2 % (10.5-14.5); WBC 8.3 thou/uL (4.0-11.0)
[2021-09-08 17:31] LABS: CALCIUM 9.4 mg/dL (8.5-10.1); CREATININE 0.9 mg/dL (0.6-1.0); POTASSIUM 4.4 mmol/L (3.5-5.1)
[2021-09-08 17:37] LABS: ALBUMIN 2.8 g/dL (3.4-5.0); TOTAL BILIRUBIN 0.2 mg/dL (0.2-1.0); TOTAL PROTEIN 7.6 g/dL (6.4-8.2)
[2021-09-08 17:56] LABS: URINE BILIRUBIN NEGATIVE (Negative); URINE BLOOD TRACE (Negative); URINE CLARITY CLEAR; URINE COLOR YELLOW; URINE GLUCOSE-RANDOM* NEGATIVE (Negative); URINE KETONES NEGATIVE (Negative); URINE NITRITE-REFLEX NEGATIVE (Negative); URINE PROTEIN (DIPSTICK) NEGATIVE (Negative); URINE UROBILINOGEN 0.2 E.U./dl (0.2-1.0)
[2021-09-08 17:57] LABS: URINE LEUKOCYTES-REFLEX 2+ (Negative)
[2021-09-08 18:07] LABS: SQUAMOUS 0-3 Few /LPF (0-3)
[2021-09-08 18:08] LABS: CASTS None Seen /LPF (None Seen); CRYSTALS None Seen /LPF (None Seen); URINE RBC 1-2 Rare /HPF (NONE SEEN)
[2021-09-08] MEDS ORDERED: CEPHALEXIN500 MG PO (18:45)
[2021-09-08] MEDS ORDERED: MUPIROCIN15 GM TOP (18:45)
[2021-09-08 18:48] VITALS: BP 149/62
== END 2021-09-08 19:02 | disposition home or self-care (01) ==
LOC: ER 12:44
PROVIDERS: Physician Assistant
DX: L03.031 Cellulitis of right toe (principal); N39.0 Urinary tract infection, site not specified; M19.90 Unspecified osteoarthritis, unspecified site; M79.7 Fibromyalgia; K21.9 Gastro-esophageal reflux disease without esophagitis; I10 Essential (primary) hypertension; M81.0 Age-related osteoporosis without current pathological fracture; F41.9 Anxiety disorder, unspecified; E11.9 Type 2 diabetes mellitus without complications; G35 Multiple sclerosis; Z90.49 Acquired absence of other specified parts of digestive tract; Z79.82 Long term (current) use of aspirin; Z79.1 Long term (current) use of non-steroidal anti-inflammatories (NSAID); Z79.891 Long term (current) use of opiate analgesic; Z79.899 Other long term (current) drug therapy; Z79.84 Long term (current) use of oral hypoglycemic drugs; Z88.6 Allergy status to analgesic agent; Z88.1 Allergy status to other antibiotic agents; Z88.3 Allergy status to other anti-infective agents; Z88.5 Allergy status to narcotic agent; Z88.2 Allergy status to sulfonamides; Z88.8 Allergy status to other drugs, medicaments and biological substances

== ENCOUNTER 2021-10-06 14:12 | Inpatient (IN) | payer OTHER ==
[~2021-10-06] VITALS: Ht 162.6 cm; Wt 63.5 kg
--- NOTE | ~2021-10-06 | HC ---
[facility] [place] [address] CONSULTATION Name: ROBERT FRANKEL Room #: 204-P ADM IN .R.#: [id number] Admission: 10/06/21 Attend Phys: Maurice Wick MD Discharge: Date of : 32 Report #: [id number] THIS REPORT FOR: cc: Silvano Parks MD, Rene P. MD Stephens, Thad A. MD ~ DATE OF SERVICE: 10/07/2021 WOUND CARE CONSULTATION REFERRING PHYSICIAN: Dr. Silvano Parks. CHIEF COMPLAINT: Possible toe gangrene. HISTORY OF PRESENT ILLNESS: This is an 89-year-old white female who has been a patient of mine in the past, has a history of severe peripheral arterial disease. The family states they had noted increasing blackness of the multiple toes on bilateral feet. The patient has a history of ____ previous stents. Family states she has been extremely weak. The patient's states she has been using topical antibiotic to the toes, but it has only gotten worse over the past 4 days. I brought the patient in to being further evaluated. The patient was admitted for further wound care as well as interventional radiology evaluation for possible angiogram. 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 CURRENT MEDICATIONS: Multiple, I reviewed the patient's medication list. DRUG ALLERGIES: Multiple, I reviewed the patient's allergy list. SOCIAL HISTORY: The patient resides at home with her . FAMILY HISTORY AND REVIEW OF SYSTEMS: Unobtainable because of the patient's dementia. PHYSICAL EXAMINATION: VITAL SIGNS: Temperature 36.4, pulse 53, respiratory rate 18, BP 142/52. GENERAL: This is an alert and oriented x1 person, but not place or time, elderly, chronically ill-appearing white female who is in no obvious distress. HEENT: Normocephalic, atraumatic. Mucous membranes are somewhat dry. Pupils are round. Sclerae white. NECK: Without JVD. LUNGS: Clear. HEART: Regular. [facility] [address] [place] [address] CONSULTATION Name: ROBERT FRANKEL Room #: 204-P [facility] IN [facility].#: [id number] Admission: 10/06/21 Attend Phys: Maurice Wick MD Discharge: Date of : 32 Report #: [id number] ABDOMEN: Soft, nontender. EXTREMITIES: The patient moves all extremities without difficulty. Evaluation of extremities shows vascular ulcers of the right first and second toe and the left first toe. There is also an unstageable decubitus ulcer on the right heel and abrasion to the left gluteal region. NEUROLOGIC: Cranial nerves II-XII are grossly intact. Motor and sensory grossly intact. LABORATORY DATA: White count 8.3, hemoglobin 9.4. Sed rate 65. BUN 27, creatinine 1.0, albumin 2.7. C-reactive protein 23.7. Arterial Doppler of the lower extremities is pending. IMPRESSION: 1. Vasculitic ulcers of the right first, second toe and left first toe. 2. Unstageable decubitus ulcer of the right heel. 3. Abrasion to the left gluteal region. 4. History of severe peripheral arterial disease, status post stent placement, 11/26/2020 of the right SFA and right popliteal artery and tibioperoneal trunk. 5. Diabetes mellitus. 6. Hypothyroidism. 7. Hypertension. 8. Generalized debility. 9. Moderate protein-calorie malnutrition, albumin 2.7. PLAN: At this time, we will paint with Betadine all the ulcerations on the toes and the heel. We will use heel protection at all times. The patient was placed on a low air loss surface, have her turned every 2 hours. We will start antifungal moisture barrier cream to the gluteal region. Dr. Alcala has been consulted for possible angiogram. Hospitalists are following as well. We will continue all other current medications. We will make sure we max utilize physical and occupational therapies as the patient is able. We will make sure we maximize the patient's oral protein supplementation for healing. Appreciate ability to consult. By: [id number] Umer Mccloud MD /ny
[~2021-10-06 14:12] MED LIST changes: +CEPHALEXIN500 MG PO; +MUPIROCIN15 GM TOP
[2021-10-06 14:46] VITALS: BP 147/86
[2021-10-06 17:25] LABS: CALCIUM 9.6 mg/dL (8.5-10.1); CREATININE 0.9 mg/dL (0.6-1.0)
[2021-10-06 17:30] LABS: ALBUMIN 2.7 g/dL (3.4-5.0); TOTAL BILIRUBIN 0.2 mg/dL (0.2-1.0); TOTAL PROTEIN 7.9 g/dL (6.4-8.2)
[2021-10-06 17:32] LABS: ABSOLUTE NEUTROPHILS 7.3 thou/uL (1.4-8.2); BASOPHILS 0.5 % (0.0-2.0); EOSINOPHILS 2.3 % (0.0-3.0); HEMATOCRIT 33.7 % (37.0-47.0); HEMOGLOBIN 10.7 gm/dL (12.0-15.0); LYMPHOCYTES 21.4 % (24.0-44.0); MCH 29.2 pg (26.0-34.0); MCHC 31.8 g/dL (28.0-37.0); MCV 91.9 fL (80.0-100.0); MONOCYTES 6.6 % (1.0-8.0); PLATELET COUNT 304 thou/uL (150-400); POLYS 69.2 % (36.0-66.0); RBC 3.67 mil/uL (4.20-5.00); RDW 13.5 % (10.5-14.5); WBC 10.5 thou/uL (4.0-11.0)
--- NOTE | 2021-10-06 19:17 | NUR ---
REPORT GIVEN TO GUTIERREZ FLORES AT THIS TIME
[2021-10-06 20:55] VITALS: BP 191/59
[2021-10-06 21:41] VITALS: BP 154/78
[2021-10-07 00:09] VITALS: BP 136/64
--- NOTE | 2021-10-07 01:58 | NUR ---
PT IS A-89 YEAR-OLD FEMALE,ADMITTED FROM HOME VIA ED WITH TOE GANGRENE.PT ARRIVED TO UNIT VIA BED ACCOMPANIED BY THE ED STAFF.PT A/OX3 WITH FORGETFULNESS AND SOME CONFUSION.EASILY TO BE REDIRECTED.UNABLE TO RECONCILE MEDS SINCE PT DOES NOT KNOW THE MEDS SHE TAKES.ADMISSION ASSESSMENT COMPLETED DOCUMENTED.
[2021-10-07 04:43] VITALS: BP 120/63
[2021-10-07 06:13] LABS: HEMATOCRIT 29.3 % (37.0-47.0); HEMOGLOBIN 9.4 gm/dL (12.0-15.0); MCH 29.3 pg (26.0-34.0); MCV 91.5 fL (80.0-100.0); RBC 3.2 mil/uL (4.20-5.00); RDW 13.2 % (10.5-14.5); WBC 8.3 thou/uL (4.0-11.0)
[2021-10-07 06:16] LABS: CALCIUM 8.9 mg/dL (8.5-10.1); CREATININE 0.9 mg/dL (0.6-1.0)
[2021-10-07 06:19] LABS: POTASSIUM 3.8 mmol/L (3.5-5.1)
[2021-10-07 07:18] VITALS: BP 129/57
--- NOTE | 2021-10-07 14:02 | NUR ---
Nutrition: pt seen due to dx toe gangrene. Has history of distal right toe nonhealing ulcer with osteomyelitis. Documentation also of redness/nonhealing wound on left buttock. PMH: HTN, NIDDM, PAD, CVA, dementia. Needs angiogam. Dr Montesinos consulted and pt kept NPO. Unable to obtain much info from pt during interview. Did report "terrible" appetite and weight loss however pt poor historian. Wt this admit 139# and hx showing 125# in November of this year Will add glucerna BID when diet advances to support wound healing needs and follow intake trends.
[2021-10-07 19:49] VITALS: BP 153/56
[2021-10-08 00:10] VITALS: BP 141/48
[2021-10-08 03:41] VITALS: BP 138/46
[2021-10-08 07:23] VITALS: BP 142/52
--- NOTE | 2021-10-08 07:56 | HC ---
[facility] [place] [address] CONSULTATION Name: ROBERT FRANKEL Room #: 204-P ADM IN M.R.#: [id number] Admission: 10/06/21 Attend Phys: Maurice Wick MD Discharge: Date of : 32 Report #: [id number] THIS REPORT FOR: cc: Silvano Parks MD, Rene P. MD Barry, Joseph W. MD ~ DATE OF SERVICE: 10/07/2021 INFECTIOUS DISEASE CONSULTATION DATE OF CONSULTATION: 10/07/2021 ATTENDING PHYSICIAN: Dr. Wick. REASON FOR EVALUATION: Right great toe gangrene, suspected deep infection. HISTORY OF PRESENT ILLNESS: Chart reviewed. The patient examined. This is an 89-year-old woman with encephalopathy, is not clear. Apparently has underlying dementia. She is quite distressed, unable to give any type of history. It is difficult to ascertain. I believe she does have pain associated with her right lower extremity. Initial evaluation included arterial Doppler, which suggested lack of flow distal superficial femoral artery and posterior tibial artery. She is scheduled to undergo invasive procedure to further evaluate. Blood cultures collected at the time of admission are sterile thus far. She has not had recorded temperature elevations. She has been started on empiric therapy with vancomycin. ALLERGIES: LISTED TO TAGAMET, NONSTEROIDALS, HYDROCODONE, BACTRIM. CURRENT MEDICATIONS: Include atorvastatin, aspirin, clopidogrel, pantoprazole, levothyroxine, vancomycin, amlodipine, alprazolam, p.r.n. analgesics, antiemetics. PAST MEDICAL HISTORY: History of hypertension, diabetes mellitus complicated by vasculopathy including peripheral vascular disease, ____ dementia, otherwise unclassified, hypothyroidism, degenerative joint disease, osteoporosis. SOCIAL HISTORY: Nonsmoker, no ethanol, no illicit drug use. FAMILY HISTORY: Noncontributory. REVIEW OF SYSTEMS: Not obtainable. PHYSICAL EXAMINATION: GENERAL: She appears chronically ill, undernourished. She is quite distressed, almost paranoid. [facility] [address] [place] [address] CONSULTATION Name: ROBERT FRANKEL Room #: 204-[facility] IN [facility]#: [id number] Admission: 10/06/21 Attend Phys: Maurice Wick MD Discharge: Date of : 32 Report #: [id number] VITAL SIGNS: Temperature 98, pulse 60, respirations 16, blood pressure 129/59. SKIN: Warm, dry, no rashes. HEENT: Normocephalic. Extraocular muscles intact. NECK: Supple. LUNGS: Diminished breath sounds. Few scattered crackles at the bases. HEART: Regular, has a soft systolic murmur. ABDOMEN: Mildly distended, soft, nontender. EXTREMITIES: Distal right lower extremity has ischemic changes. There is a gangrenous change with cutaneous infarct, appears to be more consistent with dry gangrene. At this point, involving the right great toe medial aspect. GENITOURINARY AND RECTAL: Deferred. LABORATORY DATA: Blood cultures sterile thus far. Electrolytes: Sodium 145, potassium 3.8, chloride 111, bicarbonate is 23, anion gap of 11, BUN and creatinine 36 and 0.9. Estimated GFR 59. CBC: White count of 8.3, H and H 9.4 and 29.3, platelets of 264. Coronavirus testing was negative. Arterial Dopplers described above. Lactic acid 1.5. ASSESSMENT AND PLAN: Right great toe gangrene, early evidence of severe arterial occlusive disease of the lower extremity, presumably has widespread disease, difficult to ascertain what degree of tissue injury that is more superficial. There is a concern about osteomyelitis. We will continue empiric therapy with vancomycin. At this point, she is quite tenuous, certainly at risk for additional complications including infections. Monitor expectantly. We will check urinalysis and chest x-ray. <ELECTRONICALLY SIGNED> By: Paramjit Massey MD 10/08/21 0756 [id number] 08 Paramjit Massey MD /nt
[2021-10-08 11:12] VITALS: BP 142/57
[2021-10-08 14:37] LABS: HEMATOCRIT 31.7 % (37.0-47.0); HEMOGLOBIN 10.1 gm/dL (12.0-15.0); MCH 28.9 pg (26.0-34.0); MCV 90.3 fL (80.0-100.0); RBC 3.51 mil/uL (4.20-5.00); RDW 12.9 % (10.5-14.5); WBC 7.6 thou/uL (4.0-11.0)
[2021-10-08 14:43] LABS: CALCIUM 8.9 mg/dL (8.5-10.1); POTASSIUM 4.4 mmol/L (3.5-5.1)
[2021-10-08 16:00] VITALS: BP 144/49
--- NOTE | 2021-10-08 16:42 | NUR ---
spoke with patient, spouse and dtr at bedside. Discussed post acute care. Dtr reports they are having a meeting to discuss dc planning. Gave [facility] list. Patient has been at [facility] ([facility]) in past. Not a good experience. Spouse reports he is having sx in November and [facility] will pay [facility] her stay at nursing facility for respite care. family to review [facility] list. No weekend dc anticipated.
[2021-10-08 19:56] VITALS: BP 128/56
--- NOTE | 2021-10-08 21:57 | NUR ---
PT IN BED FAMILY AT SIDE, PT REST BETTER WHEN BILL IS AT SIDE, DAUGHTER WANTED A POC WITH THE DOCTOR, ONE WAS PROVIDED, PT WAS MADE DNR, BAND PLACED, PT WAS CLEANED, TURNED AND BEDDING CHAGNED, CREAM APPLIED TO BOTTOM, TOES TREATED ORDERED. LABS WERE OBTAINED, DELAYED DUE TO REFUSAL AND HARD STICK, DOCTOR WAS INFORMED, PT PROVIDED PRN MED FOR DISCOMFORT NEEDED. BILAT IN BOOTS. AND DAUGHTER HAD NO QUESTIONS BY THE END OF THE DAY, PT RESTED WELL A AND O, KNOWS NAME, , THAT SHE IS IN A HOSPITAL, CONFUSED AT TIMES.
[2021-10-09 05:15] VITALS: BP 147/49
--- NOTE | 2021-10-09 06:33 | NUR ---
PATIENT RESTING IN HER ROOM. SHE IS AAOX1 AT BEST. ROUTINELY YELLS OUT FOR BILL. SHE IS UNABLE TO COMPREHEND SIMPLE INSTRUCTIONS. NOTED WOUNDS TO BLE. FRICTION PRECAUTIONS IN PLACE. SHE REFUSED TO TAKE HER HS MEDICATIONS. SHE IS INCONTINENT. SHE IS BEING CLEANED SHE KEEPS SAYING FOR US TO LEAVE HER ALONE. ADMINISTRERED PRN MEDICATIONS FOR PAIN. WILL CONTINUE TO MONITOR.
[2021-10-09 07:40] VITALS: BP 159/85; BP 159/88
--- NOTE | 2021-10-09 08:56 | NUR ---
took over care of this patient at 0700. pt calls out constantly for rolf (her ). pt axox1. pt pulls at monitoring specialist and cardiac leads; placed leads on back of patient. friction precautions in place; bed alarm activated. denies pain when asked but frequently cries out. pt sitting up, eating breakfast at this time. denies any needs at this time. will continue to monitor.
[2021-10-09 11:40] VITALS: BP 142/66
--- NOTE | 2021-10-09 17:19 | NUR ---
this nurse gave report to Annmarie sumner on 4s. patient transferred to 437. family present during transfer. pt remains confused but agreeable to transfer.
[2021-10-09 17:35] VITALS: BP 155/68
[2021-10-09 20:52] VITALS: BP 146/51
--- NOTE | 2021-10-10 04:27 | NUR ---
prafo boots in place. Pt confused, yells out sometimes but would not say what she needs. Getting scheduled xanax which helped her sleep. Given tramadol for pain. Appears to have rested well thro noc.
[2021-10-10 07:25] VITALS: BP 134/47
--- NOTE | 2021-10-10 11:35 | NUR ---
ASSUMED CARE OF PT AT 0700 THIS MORNING. PT IS ALERT TO SELF AND CONFUSED WITH HX OF DEMENTIA. RT SIDE WEAKNESS FROM CVA IN PAST. PT IS ANXIOUS TIMES AND REQUESTS TO GO HOME. PT SPOKE WITH AND SEEMED TO CALM HER MORE. ASSESSMEMTS NOTED IN CHART AND OTHERWISE UNREMARKABLE. FALL PRECAUTIONS ARE IN PLACE. CALL LIGHT AND OTHER NEEDS ARE IN REACH. MEDS AND TX GIVEN NEEDED AND SCHEDULED. WILL CONTINUE TO MONITOR AND NOTE ANY CHANGES.
[2021-10-10 15:34] VITALS: BP 141/41
[2021-10-10 20:01] VITALS: BP 147/121
[2021-10-10 20:29] VITALS: BP 147/121
--- NOTE | 2021-10-11 01:02 | NUR ---
UPON SHIFT REPORT, PT AOX4, RESPONDING TO ORIENTATION PROMPTS APPROPRIATELY, PT DENIED PAIN AND SOB WHILE ON ROOM AIR. PT REPORTING INTERMITTENT NAUSEA WITHOUT EMESIS. PT HAS PRN IV ZOFRAN Q4HR AVAILABLE. IV TO RIGHT AC NOTED TO CLOT OFF, REMOVAL OF IV ANTICIPATED, ALONG WITH PLACEMENT OF NEW IV. UPON SHIFT ASSESSMENT, PT ALERT, CONFUSED, FORGETFUL, FUSSY, IRRITABLE, RESTLESS AND DIFFICULT TO CONSOLE, FLACC OF 6. PT WITH INCONTINENCE, REFUSING KENNA CARE AT THAT TIME. PT NOTED TO CALM WITH DISTRACTION OF TALKING WITH BY PHONE. PT HAS PRN IM ZYPREXA Q6HR AVAILABLE. PT TOLERATING PO INTAKE OF FLUIDS AND HEART HEALTHY DIET WITHOUT ISSUE, PT WITHOUT NAUSEA OR EMESIS. PT REMAINS INCONTINENT OF BOWEL AND BLADDER, ANTIFUNGAL BARRIER CREAM APPLIED. PT RESTING IN BED THROUGHOUT SHIFT, FREQUENT REPOSITIONING ENCOURAGED WHILE IN BED, PT NOTED TO SHIFT SLIGHTLY ON HER OWN, INTERMITTENTLY REFUSING REPOSITIONING ASSISTANCE. SENSATION INTACT, CAPILLARY REFILL LESS THAN 3SEC, PERIPHERAL PULSES FAINT IN ALL EXTREMITIES, HEEL PROTECTORS IN PLACE. PT ENCOURAGED TO NOTIFY STAFF FOR ALL NEEDS, CALL LIGHT WITHIN REACH, BED ALARM ON, BED LOCKED IN LOWEST POSITION, ROOM REMAINS NEAR NURSES STATION, FREQUENT MONITORING WILL CONTINUE.
[2021-10-11 08:55] VITALS: BP 165/65
--- NOTE | 2021-10-11 09:44 | NUR ---
CM spoke with her daughter and referral to be sent to [facility]. Will need insurance auth if [facility] can accept at [facility].
--- NOTE | 2021-10-11 11:09 | NUR ---
RE-ASSUMED CARE OF PT THIS MORNING AT 0700. PT WAS SLEEPING DURING REPORT. NO CHANGES THROUGHOUT THE NIGHT. ASSESSMENTS NOTED IN CHART AND OTHERWISE UNREMARKABLE. FALL PRECAUTIONS ARE IN PLACE. CALL LIGHT AND OTHER NEEDS ARE IN REACH. MEDS AND TX GIVEN NEEDED AND SCHEDULED. WILL CONTINUE CARE AND MONITOR AND WILL NOTE ANY CHANGES. PT MAY BE DISCHARGED LATER TODAY. WAITING ON MULCHER OPERATOR FOR CONFIRMATION.
--- NOTE | 2021-10-11 11:46 | NUR ---
Discussed during los with attending possible ready later today, have to monitor. Will cont following as needed. Referral sent to [facility].
[2021-10-11] MEDS ORDERED: MINOCYCLINE HC100 M2 PO (12:25)
[2021-10-11] MEDS ORDERED: ZYPREXA2.5 MG PO (12:25)
--- NOTE | 2021-10-11 17:07 | NUR ---
AWAITING AUTH FOR POSSIBLE SNF AT [facility]. LAURA VISITED WITH PT AND SPOUSE. CM FOLLOING REGARDING DC PLANNING.
[2021-10-11 20:45] VITALS: BP 162/80
[2021-10-12 01:50] VITALS: BP 151/59
--- NOTE | 2021-10-12 06:21 | NUR ---
Pt was sleeping at the start of shift and seemed really drowsy. She however was able to take meds and responds when communicated to. Pt started yelling as the noc progressed, calling out Bill. She was becoming irritable and difficult to console. repositioning provided. PRN meds given IM around midnoc. PT also fed apple sauce and yoghurt. She periodically asks for prafo boots to be taken off.Afebrile.Incontinent of bladder. Repositioning provided.Fall prec in place.
[2021-10-12 07:44] VITALS: BP 134/67
--- NOTE | 2021-10-12 09:22 | NUR ---
[facility] liaison is going to come out around 1100 today and visit with yamel and she spouse. [facility] is going to submit for auth.
--- NOTE | 2021-10-12 10:56 | NUR ---
RE-ASSUMED CARE OF PT THIS MORNING. PT WAS UP MOST OF THE NIGHT YELLING OUT AND ATTEMPTING TO GET OUT OF BED. PT IS A/OX1-2 CONFUSED AND IMPULSIVE. SHE IS MORE CALM THIS MORNING. ASSESSMENTS NOTED IN THE CHART AND OTHERWISE UNREMARKABLE. FALL PRECAUTIONS ARE IN PLACE. CALL LIGHT AND OTHER NEEDS IN REACH. HEEL PADS ARE IN PLACE BUT GET KICKED OFF AFTER AWHILE. WAITING FOR RELATIONS LIAISON TO GET INSURANCE AUTH FOR XFERR TO FACILITY. MEDS AND TX GIVEN NEEDED AND SCHEDULED. WILL CONTINUE MONITORING AND NOTE ANY CHANGES.
[2021-10-12 13:13] VITALS: BP 134/67
--- NOTE | 2021-10-12 16:25 | NUR ---
ASSUMED CARE OF PT AT 1540 THIS AFTERNOON. PT ADMITTED FROM PACU. 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 HEMOVAC IN PLACE. PT IS A/OX4 WITH NO DEFICITS. DRESSING WITH LUI WRAP ON LT FOOT. HEMOVAC SHOWING APPROX 15ML FLUID. PT STATED HE IS NOT DIABETIC AND WOULD LIKE TO BE ON A REG DIET. DIET IS ADVANCE TOLERATED AND PT DRANK WATER AND MT DEW WITH NO ISSUES SO ADVANCED TO REG DIET. ASSESSMENTS NOTED IN CHART AND OTHERWISE UNREMARKABLE. PT IS TO REMAIN IN BED AND USE THE URINAL AND POSSIBLE BEDSIDE COMODE. FALL PRECAUTIONS ARE IN LACE. CALL LIGHT AND OTHER NEEDS IN REACH. MEDS ARE NOT SET IN [facility] YET. TX AND IF MEDS ARE AVAILABLE WILL BE GIVEN NEEDED AND SCHEDULED.
[2021-10-12 18:48] VITALS: BP 116/45
[2021-10-12 20:28] VITALS: BP 130/62
--- NOTE | 2021-10-12 20:50 | NUR ---
ASSESSMENT COMPLETED. PT YELLING OUT FOR NURSE. C/O 05/15 PAIN TO RIGHT FOOT. PT ALSO STATES " I NEED SOMETHING TO KNOCK ME OUT SO I COULD SLEEP". SCHEDULED MEDS GIVEN WELL PRN TRAMADOL. MEDS GIVEN IN PUDDING. PT SWALLOWS OKAY.PRAFO BOOTS IN PLACE.INCONTINENT OF BLADDER.REPOSITIONED. REASSURED THAT SHE WILL BE CHECKED UPON THRO THE NOC. PT IS CONFUSED AND ASKS WHETHER SHE CAN GO TO HER BED. RE-ORIENTATION PROVIDED. NO FURTHER CONCERNS.FALL PREC IN PLACE.
[2021-10-13 03:35] VITALS: BP 125/66
[2021-10-13 07:25] VITALS: BP 130/64
--- NOTE | 2021-10-13 09:30 | NUR ---
RE-ASSUMED CARE OF PT AT 0700 THIS MORNING. PT HAD NO CHANGES SINCE LAST REPORT. PT DID REST MORE LAST NIGHT AND WAS MORE AWAKE THIS MORNING. ASSESSMENTS NOTED IN CHART AND OTHERWISE UNREMARKABLE. FALL PRECAUTIONS IN PLACE. CALL LIGHT AND OTHER NEEDS IN REACH. RT GREATER AND SECOND DIGIT TOES HAVE NO CHANGE AND STILL GANGRENOUS. MEDS AND TX GIVEN NEEDED AND SCHEDULED. PT MAY BE DISCHARGED LATER, WAITING ON INS AUTH. WILL MONITOR PT AND NOTE ANY CHANGES.
--- NOTE | 2021-10-13 09:57 | NUR ---
insurance requsted updates on pt and ot notes. Cm faxed to [facility].
--- NOTE | 2021-10-13 11:38 | NUR ---
new order for ot to eval. Needing to send more additional updates to [facility]. Discussed during los with the attending physician. Pain management prior to working with therapy.
[2021-10-13 15:31] VITALS: BP 136/52
[2021-10-13 20:01] VITALS: BP 128/67
--- NOTE | 2021-10-14 00:43 | NUR ---
ASSUMED PT CARE AT AROUND 1915 HRS. WAS IN THE ROOM BUT PT WAS GETTING ANXIOUS AND RESTLESS ASKING TO GET HER OUT OF BED. RE-ORIENTATION PROVIDED.PT C/O R FOOT PAIN AND GIVEN TYLENOL. PT WAS ALSO GIVEN HS MEDS INCLUDING MELATONIN AND SHE SEEMS TO BE RESTING QUIETLY.FALL PREC IN PLACE.
[2021-10-14 03:42] VITALS: BP 136/60
--- NOTE | 2021-10-14 09:33 | NUR ---
Assumed care of pt at 0700. Pt alert but confused and forgetful. Prefo boots in place. PT/OT ordered. Meds administered whole in pudding. RA. No complaints at this time. Call light within reach. Fall precautions in place. Will continue to monitor.
--- NOTE | 2021-10-14 09:56 | NUR ---
Therapy notes and progress notes sent to [employer] to cont. to request skilled auth from [facility].
--- NOTE | 2021-10-14 10:07 | NUR ---
Followup: unstagable right heel ulcer and vascular toe ulcers, followed by wound care. Advanced age 89. Starting to eat better, 100% of 2 meals and 60% of third meal yesterday recorded. Possible transition to hospice in future, for now likely discharge soon.
[2021-10-14 15:49] VITALS: BP 137/53
[2021-10-14 19:51] VITALS: BP 135/48
--- NOTE | 2021-10-15 03:45 | NUR ---
ASSUMED CARE OF PT AT 1900. BEDSIDE REPORT RECIEVED. LAURA ASSESSMENT COMPLETE. PT DISORIENTED, YELLING/CRYING OUT. PROVIDED REORIENTATION FOR PT, AND ATTEMPTED REDIRECTING/ DISTRACTING PT. PT C/O R FOOT PAIN AND BACK PAIN. MEDS GIVEN PER JAN. PAIN MEDS GIVEN ACCORDINLY. PRN OLANZAPINE GIVEN IM PER JAN D/T AGITATION, YELLING/CRYING OUT. Q2 HOUR REPOSITIONING FOR COMFORT. PUREWICK IN PLACE. ALL NEEDS MET, HOURLY ROUNDING CONTINUING. CALL LIGHT IN REACH
[2021-10-15 07:45] VITALS: BP 138/84
--- NOTE | 2021-10-15 10:42 | NUR ---
Assumed care of pt at 0700. Pt alert but confused. Q2h turn. Prefo boots in place. Awaiting ins auth. Call light within reach. Fall precautions in place. Will continue to monitor.
--- NOTE | 2021-10-15 13:56 | NUR ---
Discuss during los with the attending physician. Valeria spouse is currently in hospital his self. MD to talk with family. Still waiting to see if [facility]
[2021-10-15 17:06] VITALS: BP 117/41
[2021-10-15 21:08] VITALS: BP 139/43
--- NOTE | 2021-10-16 03:25 | NUR ---
ASSUMED CARE OF PT AT 1900. BEDSIDE REPORT RECIEVED. LAURA ASSESSMENT COMPLETE. PROVIDED REORIENTATION FOR PT D/T CONFUSION. REDIRECTION ATTEMPTED MULTUIPLE TIMES D/T PT YELLING/CRYING OUT. C/O BACK PAIN. MEDS GIVEN PER MAR PAIN MEDS GIVEN ACCORDINLY. Q2 HOUR REPOSITIONING. PRAFO BOOTS ON BLE. PUREWICK IN PLACE. BARRIER CREAM TO COCCYX AND GROIN. ALL NEEDS MET, HOURLY ROUNDING CONTINUING, CALL LIGHT IN REACH
[2021-10-16 08:18] VITALS: BP 117/49
--- NOTE | 2021-10-16 09:48 | NUR ---
Assumed care of pt at 0700. Pt alert but confused. Intermittently yells for her . Q2h turn. Prefo boots in place. Needs help with feeding. Awaiting ins auth. Incontinent. Call light within reach. Fall precautions in place. Will continue to monitor.
[2021-10-16 16:09] VITALS: BP 140/60
[2021-10-16 20:00] VITALS: BP 143/60
--- NOTE | 2021-10-17 04:08 | NUR ---
PT LYING IN BED. DENIES PAIN. PURE WICK IN PLACE. FREQUENT OBSERVATION.
[2021-10-17 07:27] VITALS: BP 131/54
--- NOTE | 2021-10-17 11:17 | NUR ---
RE-ASSUMED CARE OF PT AT 0700 THIS MORNING. PT HAS BEEN CALLING FOR A NURSE MOST OF THE MORNING ABOUT THE SAME THING EACH TIME. PT IS A/OX1 CONFUSED AND FORGETFUL. ASSESSMENTS NOTED IN CHART AND OTHERWISE UNREMARKABLE. FALL PRECAUTIONS ARE IN PLACE. CALL LIGHT AND OTHER NEEDS ARE IN REACH. MEDS AND TX GIVEN NEEDED AND SCHEDULED. WILL MONITOR PT AND NOTE ANY CHANGES. PRIMARILY WAITING ON DECISION WHETHER PT WILL GO TO SNF FACILITY OR HOSPICE BY FAMILY.
[2021-10-17 15:45] VITALS: BP 134/68
[2021-10-17 19:16] VITALS: BP 136/51
--- NOTE | 2021-10-18 03:01 | NUR ---
PT LYING IN BED. DENIES PIN. PURE WICK IN PLACE. RESTING COMFORTABLY. NO NEEDS VOICED. CALL LIGHT WITHIN REACH. FREQUENT OBSERVATION.
[2021-10-18 07:20] VITALS: BP 132/53
--- NOTE | 2021-10-18 09:21 | NUR ---
0700 THIS NURSE ASSUMED CARE OF PATIENT. PT SLEEPING, NORMAL RISE AND FALL OF CHEST SEEN, NO RESPIRATORY DISTRESS NOTED AT THIS TIME. PUREWICK IN PLACE WITH SUCTION ON. ACTIVE DRAINAGE. WILL REVIEW ORDERS AND [facility].
--- NOTE | 2021-10-18 12:32 | NUR ---
updates sent to [facility]- francis ayala. Spoke with [facility] liaison and they have not heard back for [facility] yet . Cm called her daughter shannan, no answer, left message requesting a call back.
--- NOTE | 2021-10-18 16:00 | NUR ---
edward with [facility] called cm back. Valeria had been on their palliative program prior to hospital. He was just dc from hospital yesterday and i spoke with him and he wants me to talk wit his daughters about going home with hospice with [facility]. we are able to assist with dcp if needed, fax updates to [phone], phone # [phone] per edward. Still no answer back from [facility] skilled referral from [facility]. Will cont following as needed.
[2021-10-18 17:00] VITALS: BP 142/42
[2021-10-18 19:25] VITALS: BP 112/52
--- NOTE | 2021-10-19 05:52 | NUR ---
RECEIVED CARE OF THIS PATIENT AT 1900. PATIENT ALERT AND ORIENTED TO SELF AND PLACE. HAS NECROTIC TOES ON JOSE J FEET, OPEN TO AIR. HAS NO IV ACCESS. DENIES PAIN. SLEPT MOST OF NIGHT.
[2021-10-19 08:26] VITALS: BP 126/51
--- NOTE | 2021-10-19 10:24 | NUR ---
Assumed care of pt at 0700. Pt a&ox2. Q2h turn. Prefo boots in place. Awaiting ins auth. Fall precuations in place. Will continue to monitor.
--- NOTE | 2021-10-19 11:21 | NUR ---
Discussed during los with the attending physician. Cm called daughter Saima, no answer, left message and requested a call back.
--- NOTE | 2021-10-19 14:21 | NUR ---
Received phone call from edward with [facility] who that Nurse practitioner is going to have a phone call meeting with leo ryland, daughter shannan who has recently lost her to covid and is not coping well, and daughter vikas who is going through tx for breast cancer # [phone]. The nurse practitioner going to address home wit hospice with the family, [facility] going to contact [facility] to do a eval if family is agreeable. [facility] has not giving a decision or denial for skilled rehab at [facility]. [facility] is concerned that she will not have a dcp so not sure if they will accept anyway.
[2021-10-19 15:29] VITALS: BP 130/57
--- NOTE | 2021-10-19 15:40 | NUR ---
ASSUMED C/O PT AT APPROX 1300. PT RESTING IN BED. WILL CONTINUE TO MONITOR.
[2021-10-19 16:45] VITALS: BP 134/67
--- NOTE | 2021-10-19 16:48 | NUR ---
Call back rec'd from AMINA Roberts with [facility]. She and their [employer]PER[employer]TING [employer]PART[employer], met with the pt's spouse and two dtrs to discuss options and home with hospice care. Alejandra reports the family understands that she has limited potential for skilled rehab and we are awaiting denial from the ins plan. Overall prognosis and pt/spouse's desire to be together makes hospice care at home their best option at this time. The socialworker provided them with agency options and the selected [facility] and they initiated the referral. Lor is the hospice nurse who will be assisting with her admission to services at home. All parties agreeable to dc tomorrow with hospice services. Message left for Lor to determine best dc /admission time. [employer] form completed and outside the hospital DNR form ready for physician signature. Dtr Ro is the point person for the family as pt's spouse just got home from the hospital and Saima's spouse recently from Covid. Alejandra will need an updated tomorrow to confirm dc to home with hospice [phone]. Ro's number is [phone]. The attending and the care team were updated along with the John liason.
[2021-10-19 19:47] VITALS: BP 158/67
--- NOTE | 2021-10-20 04:00 | NUR ---
Pt been yelling most of the night, She slept very little. Tylenol and tramadol given for pain.
[2021-10-20 07:17] VITALS: BP 108/73
--- NOTE | 2021-10-20 09:59 | NUR ---
Assumed care of pt at 0700. Pt a&ox1-2. Pt anxious at times and yells out for Bill. External female catheter in place. Pt will dicharge home with hospice aorund 1400 via [facility]. Call light within reach. Fall precautions in place. Will continue to monitor.
[2021-10-20 12:44] VITALS: BP 134/67
[2021-10-20] MEDS ORDERED: ZYPREXA2.5 MG PO (13:26)
[2021-10-20] MEDS ORDERED: XANAX 0.25 MG0.25 MG PO (13:26)
--- NOTE | 2021-10-20 13:50 | NUR ---
Dc home today, faxed dc orders to [facility]. kc is set up for 1400 today. Gave Bedside nurse delivered transport and outside dnr form and copy placed on her chart.
== END 2021-10-20 14:58 | disposition hospice, home (50) | DRG 299 ==
LOC: ER 14:12 → EROBS 18:48 → 4S 18:48 → 4W 18:48 → 2N 10-07 18:49 → 4S 10-09 17:07
PROVIDERS: Emergency Medicine; Nurse Practitioner; Nurse Practitioner Family; ADMIT Hospitalist; ATTEND Hospitalist
PROC: B4181ZZ Fluoroscopy of Bilateral Renal Arteries using Low Osmolar Contrast (ICD-10-PCS; principal; 2021-10-07)
PROC: B41D1ZZ Fluoroscopy of Aorta and Bilateral Lower Extremity Arteries using Low Osmolar Contrast (ICD-10-PCS; principal; 2021-10-07)
DX: E11.52 Type 2 diabetes mellitus with diabetic peripheral angiopathy with gangrene (principal); E43 Unspecified severe protein-calorie malnutrition; I96 Gangrene, not elsewhere classified; L03.115 Cellulitis of right lower limb; R65.10 Systemic inflammatory response syndrome (SIRS) of non-infectious origin without acute organ dysfunction; N17.9 Acute kidney failure, unspecified; I69.354 Hemiplegia and hemiparesis following cerebral infarction affecting left non-dominant side; L89.610 Pressure ulcer of right heel, unstageable; L97.519 Non-pressure chronic ulcer of other part of right foot with unspecified severity; Z20.822 Contact with and (suspected) exposure to COVID-19; M19.90 Unspecified osteoarthritis, unspecified site; K21.9 Gastro-esophageal reflux disease without esophagitis; I10 Essential (primary) hypertension; M81.0 Age-related osteoporosis without current pathological fracture; Z96.652 Presence of left artificial knee joint; F03.90 Unspecified dementia, unspecified severity, without behavioral disturbance, psychotic disturbance, mood disturbance, and anxiety; E03.9 Hypothyroidism, unspecified; R53.81 Other malaise; S70.212A Abrasion, left hip, initial encounter; M79.7 Fibromyalgia; F32.9 Major depressive disorder, single episode, unspecified; L97.529 Non-pressure chronic ulcer of other part of left foot with unspecified severity; R41.9 Unspecified symptoms and signs involving cognitive functions and awareness; G47.00 Insomnia, unspecified; S90.31XA Contusion of right foot, initial encounter; Z98.42 Cataract extraction status, left eye; X58.XXXA Exposure to other specified factors, initial encounter; Z98.41 Cataract extraction status, right eye; Z88.2 Allergy status to sulfonamides; Z88.8 Allergy status to other drugs, medicaments and biological substances; Y93.89 Activity, other specified; Y92.89 Other specified places as the place of occurrence of the external cause; Y99.8 Other external cause status; Z79.899 Other long term (current) drug therapy; Z28.21 Immunization not carried out because of patient refusal
CPT/HCPCS: 10045; 10081; 10102